=== PATIENT | male | born 1945 | race African-American/Black ===

== ENCOUNTER 2018-11-11 10:53 | Inpatient (IN) ==
[2018-11-11] MEDS ORDERED: MORPHINE 4 MG/1 ML VIAL IV STA (14:49)
[2018-11-11] MEDS ORDERED: ONDANSETRON 4 MG/2 ML VIAL IM STA (14:49)
[2018-11-11 15:23] LABS: Basophils # 0.1 10*3/uL (0.0-0.2); Basophils % 0.4 % (0.0-0.8); Eosinophils # 0.1 10*3/uL (0.0-0.87); Eosinophils % 0.8 % (0.00-10.9); Hematocrit 37.7 VOL% (42.0-52.0); Hemoglobin 12.1 GM/DL (14.0-18.0); Immature Granulocytes % 0.7 %; Immature Granulocytes Absolute 0.12 #; Lymphocytes # 1.6 10*3/uL (1.4-4.0); Lymphocytes % 9.4 % (21.2-54.2); Mean Corpuscular HGB Conc 32.1 GM/DL (32-36); Mean Corpuscular Hemoglobin 28 PG (27-34); Mean Corpuscular Volume 87.1 FL (87-102); Mean Platelet Volume 11.3 FL (9.6-12.0); Monocytes # 1.3 10*3/uL (0.11-0.8); Monocytes % 7.5 % (1.7-12.7); Neutrophils # 13.4 10*3/uL (1.4-7.4); Neutrophils % 81.2 % (38.7-73.9); Platelet Count 221 T/CUMM (130-400); Red Blood Count 4.33 MC/CUMM (3.8-5.5); Red Cell Distribution Width 13.7 % (9.3-17.3); White Blood Count 16.6 T/CUMM (4-12)
[2018-11-11 15:37] LABS: Albumin 2.9 G/DL (3.4-5.0); Bilirubin,Total 0.4 MG/DL (0.2-1.0); Calcium 9.3 MG/DL (8.5-10.1); Osmolality,Calculated 279.2 MOS/KG (273-304); Potassium 4.7 MMOL/L (3.5-5.1); Total Protein 7.8 G/DL (6.4-8.3)
[2018-11-11 15:47] LABS: PT Patient Result 10.5 SECS; Partial Thromboplastin Time 29.6 SECS (0-40)
[2018-11-11 16:15] LABS: Apearance,Urine CLEAR (Clear); Bacteria,Urine Occasional /HPF (Few); Bilirubin,Urine Negative (Negative); Blood, Urine Moderate mg/dL (Negative); Glucose,Urine (UA) Negative (Negative); Ketones,Urine Negative (Negative); Mucus,Urine Occasional /LPF (Occasional); Nitrite,Urine Negative (Negative); Protein,Urine 100 MG/DL; RBC,Urine 2 /HPF (0-4); Squamous Epithelial Cell,Urine Occasional /HPF (0-10); Urine Color Yellow (Yellow); Urine Specific Gravity 1.017 (1.001-1.035); Urine Urobilinogen < 2.0 EU/DL (0.2-1.0); WBC,Urine 3 /HPF (0-6)
[2018-11-11] MEDS ORDERED: MORPHINE 4 MG/1 ML VIAL IV PRN (17:41)
[2018-11-11] MEDS ORDERED: ONDANSETRON 4 MG/2 ML VIAL IV PRN (17:41)
[2018-11-11] MEDS ORDERED: ACETAMINOPHEN 325 MG TABLET PO PRN (17:41)
[2018-11-11] MEDS ORDERED: GLUCAGON 1 MG VIAL IM PRN (20:32)
[2018-11-11] MEDS ORDERED: DEXTROSE 50% 25 GM/50 ML SYRINGE IV PRN (20:32)
[2018-11-11] MEDS ORDERED: INSULIN LISPRO PROTAMINE/LISPRO 75/25 100 UNIT/ML SUBCUT SCH (21:00)
[2018-11-11] MEDS: LACTATED RINGERS 1,000 ML IV SCH (21:34)
[2018-11-11] MEDS: ROSUVASTATIN 20 MG TABLET PO SCH (22:01)
[2018-11-11] MEDS: cefTRIAXone 1,000 MG in SYRINGE 1 EACH IV SCH (22:01)
[2018-11-11] MEDS: INSULIN GLARGINE 100 UNIT/ML SUBCUT SCH (22:03)
[2018-11-11] MEDS: HEPARIN DRIP 25,000 UNITS/500 ML PREMIX IV SCH (22:04)
[2018-11-12] MEDS: INSULIN LISPRO 100 UNIT/ML SUBCUT SCH ×5 (00:39→23:11)
[2018-11-12 05:53] LABS: Basophils # 0.1 10*3/uL (0.0-0.2); Basophils % 0.3 % (0.0-0.8); Eosinophils # 0.3 10*3/uL (0.0-0.87); Eosinophils % 1.6 % (0.00-10.9); Hematocrit 36.8 VOL% (42.0-52.0); Hemoglobin 11.5 GM/DL (14.0-18.0); Immature Granulocytes % 0.9 %; Immature Granulocytes Absolute 0.16 #; Lymphocytes # 2.2 10*3/uL (1.4-4.0); Lymphocytes % 12.8 % (21.2-54.2); Mean Corpuscular HGB Conc 31.3 GM/DL (32-36); Mean Corpuscular Hemoglobin 27 PG (27-34); Mean Corpuscular Volume 87.6 FL (87-102); Mean Platelet Volume 10.8 FL (9.6-12.0); Monocytes # 1.5 10*3/uL (0.11-0.8); Monocytes % 8.4 % (1.7-12.7); Neutrophils # 13.2 10*3/uL (1.4-7.4); Platelet Count 200 T/CUMM (130-400); Red Cell Distribution Width 13.8 % (9.3-17.3); White Blood Count 17.3 T/CUMM (4-12)
[2018-11-12] MEDS: ASPIRIN EC 81 MG TABLET PO SCH (08:50)
[2018-11-12] MEDS: LOSARTAN 50 MG TABLET PO SCH (08:50)
[2018-11-12] MEDS: PANTOPRAZOLE 40 MG TABLET PO SCH (08:51)
[2018-11-12] MEDS: FERROUS SULFATE 325 MG TABLET PO SCH (08:51)
[2018-11-12] MEDS: CHOLECALCIFEROL 1,000 UNIT TABLET PO SCH (08:51)
[2018-11-12] MEDS: INSULIN LISPRO PROTAMINE/LISPRO 75/25 100 UNIT/ML SUBCUT SCH ×2 (08:58→18:02)
[2018-11-12] MEDS: LACTATED RINGERS 1,000 ML IV SCH ×2 (11:41→21:33)
[2018-11-12] MEDS: HEPARIN DRIP 25,000 UNITS/500 ML PREMIX IV SCH ×2 (16:37→17:42)
[2018-11-12] MEDS: POLYETHYLENE GLYCOL POWDER 17 GM PACK PO SCH (18:15)
[2018-11-12] MEDS: cefTRIAXone 1,000 MG in SYRINGE 1 EACH IV SCH (21:33)
[2018-11-12] MEDS: INSULIN GLARGINE 100 UNIT/ML SUBCUT SCH (21:33)
[2018-11-12] MEDS: ROSUVASTATIN 20 MG TABLET PO SCH (21:34)
[2018-11-13] MEDS: LACTATED RINGERS 1,000 ML IV SCH ×2 (00:43→14:49)
[2018-11-13 05:22] LABS: Basophils % 0.2 % (0.0-0.8); Eosinophils # 0.4 10*3/uL (0.0-0.87); Eosinophils % 1.9 % (0.00-10.9); Hematocrit 35.9 VOL% (42.0-52.0); Hemoglobin 11.4 GM/DL (14.0-18.0); Immature Granulocytes % 1.7 %; Immature Granulocytes Absolute 0.32 #; Lymphocytes # 2.3 10*3/uL (1.4-4.0); Lymphocytes % 12.3 % (21.2-54.2); Mean Corpuscular HGB Conc 31.8 GM/DL (32-36); Mean Corpuscular Hemoglobin 28 PG (27-34); Mean Corpuscular Volume 87.1 FL (87-102); Mean Platelet Volume 11.1 FL (9.6-12.0); Monocytes # 1.4 10*3/uL (0.11-0.8); Monocytes % 7.7 % (1.7-12.7); Neutrophils # 14.1 10*3/uL (1.4-7.4); Neutrophils % 76.2 % (38.7-73.9); Platelet Count 223 T/CUMM (130-400); Red Blood Count 4.12 MC/CUMM (3.8-5.5); Red Cell Distribution Width 13.7 % (9.3-17.3); White Blood Count 18.4 T/CUMM (4-12)
[2018-11-13 05:37] LABS: Osmolality,Calculated 267.9 MOS/KG (273-304); Potassium 4.5 MMOL/L (3.5-5.1)
[2018-11-13] MEDS: INSULIN LISPRO 100 UNIT/ML SUBCUT SCH ×3 (06:24→17:31)
[2018-11-13] MEDS: HEPARIN DRIP 25,000 UNITS/500 ML PREMIX IV SCH (07:56)
[2018-11-13] MEDS: ASPIRIN EC 81 MG TABLET PO SCH (08:53)
[2018-11-13] MEDS: PANTOPRAZOLE 40 MG TABLET PO SCH (08:53)
[2018-11-13] MEDS: FERROUS SULFATE 325 MG TABLET PO SCH (08:53)
[2018-11-13] MEDS: CHOLECALCIFEROL 1,000 UNIT TABLET PO SCH (08:53)
[2018-11-13] MEDS: LOSARTAN 50 MG TABLET PO SCH (08:53)
[2018-11-13] MEDS: POLYETHYLENE GLYCOL POWDER 17 GM PACK PO SCH (08:53)
[2018-11-13] MEDS ORDERED: POLYETHYLENE GLYCOL POWDER 17 GM PACK PO SCH (09:00)
[2018-11-13] MEDS ORDERED: INDOMETHACIN 50 MG CAPSULE PO SCH (09:00)
[2018-11-13] MEDS: INSULIN LISPRO PROTAMINE/LISPRO 75/25 100 UNIT/ML SUBCUT SCH ×2 (09:43→19:10)
[2018-11-13] MEDS: INDOMETHACIN 25 MG CAPSULE PO SCH ×3 (09:50→22:01)
[2018-11-13] MEDS: COLCHICINE 0.6 MG CAPSULE PO SCH ×2 (09:50→21:59)
[2018-11-13] MEDS: cefTRIAXone 1,000 MG in SYRINGE 1 EACH IV SCH (21:59)
[2018-11-13] MEDS: ROSUVASTATIN 20 MG TABLET PO SCH (21:59)
[2018-11-13] MEDS: INSULIN GLARGINE 100 UNIT/ML SUBCUT SCH (22:00)
[2018-11-14] MEDS: INSULIN LISPRO 100 UNIT/ML SUBCUT SCH ×3 (00:08→12:35)
[2018-11-14] MEDS: LACTATED RINGERS 1,000 ML IV SCH ×2 (03:36→05:15)
[2018-11-14 05:39] LABS: Basophils % 0.2 % (0.0-0.8); Eosinophils # 0.3 10*3/uL (0.0-0.87); Eosinophils % 1.8 % (0.00-10.9); Hemoglobin 11.4 GM/DL (14.0-18.0); Immature Granulocytes % 2.2 %; Lymphocytes # 1.5 10*3/uL (1.4-4.0); Lymphocytes % 8.1 % (21.2-54.2); Mean Corpuscular HGB Conc 31.7 GM/DL (32-36); Mean Corpuscular Hemoglobin 28 PG (27-34); Mean Corpuscular Volume 87.4 FL (87-102); Mean Platelet Volume 11.1 FL (9.6-12.0); Monocytes # 1.5 10*3/uL (0.11-0.8); Monocytes % 8.1 % (1.7-12.7); Neutrophils # 14.4 10*3/uL (1.4-7.4); Neutrophils % 79.6 % (38.7-73.9); Platelet Count 221 T/CUMM (130-400); Red Blood Count 4.12 MC/CUMM (3.8-5.5); Red Cell Distribution Width 13.5 % (9.3-17.3); White Blood Count 18.2 T/CUMM (4-12)
[2018-11-14 06:02] LABS: Osmolality,Calculated 275.4 MOS/KG (273-304); Potassium 4.7 MMOL/L (3.5-5.1)
[2018-11-14] MEDS: PANTOPRAZOLE 40 MG TABLET PO SCH (09:55)
[2018-11-14] MEDS: LOSARTAN 50 MG TABLET PO SCH (09:55)
[2018-11-14] MEDS: ASPIRIN EC 81 MG TABLET PO SCH (09:55)
[2018-11-14] MEDS: FERROUS SULFATE 325 MG TABLET PO SCH (09:55)
[2018-11-14] MEDS: COLCHICINE 0.6 MG CAPSULE PO SCH (09:55)
[2018-11-14] MEDS: CHOLECALCIFEROL 1,000 UNIT TABLET PO SCH (09:55)
[2018-11-14] MEDS: POLYETHYLENE GLYCOL POWDER 17 GM PACK PO SCH (09:56)
[2018-11-14] MEDS: INSULIN LISPRO PROTAMINE/LISPRO 75/25 100 UNIT/ML SUBCUT SCH (09:56)
[2018-11-14 18:10] VITALS: BP 141/88
[2018-11-15] MEDS ORDERED: ALLOPURINOL 100 MG TABLET PO SCH (09:00)
== END 2018-11-14 17:15 | disposition home or self-care (01) | DRG 554 ==
LOC: N.ED 10:53 → N.EDINP 17:39 → N.3E 19:38
PROVIDERS: ADMIT Surgery; ATTEND Surgery

== ENCOUNTER 2018-11-23 21:45 | Inpatient (IN) ==
[2018-11-24 00:13] LABS: Basophils # 0.1 10*3/uL (0.0-0.2); Basophils % 0.2 % (0.0-0.8); Eosinophils # 0.2 10*3/uL (0.0-0.87); Eosinophils % 0.7 % (0.00-10.9); Hematocrit 37.3 VOL% (42.0-52.0); Hemoglobin 11.6 GM/DL (14.0-18.0); Immature Granulocytes % 1.1 %; Immature Granulocytes Absolute 0.24 #; Lymphocytes # 1.9 10*3/uL (1.4-4.0); Lymphocytes % 8.4 % (21.2-54.2); Mean Corpuscular HGB Conc 31.1 GM/DL (32-36); Mean Corpuscular Hemoglobin 27 PG (27-34); Mean Platelet Volume 10.4 FL (9.6-12.0); Monocytes % 4.4 % (1.7-12.7); Neutrophils # 19.2 10*3/uL (1.4-7.4); Neutrophils % 85.2 % (38.7-73.9); Platelet Count 434 T/CUMM (130-400); Red Blood Count 4.24 MC/CUMM (3.8-5.5); White Blood Count 22.5 T/CUMM (4-12)
[2018-11-24 00:39] LABS: Alanine Aminotransferase 119 U/L (16-61); Alkaline Phosphatase 208 U/L (45-117); Aspartate Amino Transferase 92 U/L (0-37); Bilirubin,Total < 0.39 MG/DL (0.2-1.0); Blood Urea Nitrogen 53 MG/DL (7-18); Calcium 9.4 MG/DL (8.5-10.1); Glucose 110 MG/DL (74-106); Potassium 3.8 MMOL/L (3.5-5.1); Sodium 136 MMOL/L (136-145); Total Protein 9.2 G/DL (6.4-8.3)
[2018-11-24 00:46] LABS: Albumin 2.2 G/DL (3.4-5.0)
[2018-11-24 04:48] LABS: Lymphocytes 6 % (20-55); Segmented Neutrophils 93 % (50-85); Total Cells Counted 100
[2018-11-24 04:49] LABS: Platelet Estimate Normal; Polychromasia Few
[2018-11-24] MEDS: SODIUM CHLORIDE 0.45% 1,000 ML IV SCH ×3 (05:08→18:56)
[2018-11-24] MEDS: MORPHINE 4 MG/1 ML VIAL IV PRN ×3 (06:34→21:27)
[2018-11-24] MEDS: ONDANSETRON 4 MG/2 ML VIAL IV PRN (06:35)
[2018-11-24] MEDS ORDERED: ceFAZolin 1,000 MG in SYRINGE 1 EACH IV ONE (08:27)
[2018-11-24] MEDS: PANTOPRAZOLE 40 MG VIAL IV SCH (08:28)
[2018-11-24] MEDS ORDERED: FAMOTIDINE 20 MG TABLET PO STA (09:56)
[2018-11-24] MEDS ORDERED: LIDOCAINE 2% TOP JELLY 20 ML VIAL INTRAURETH ONE (11:20)
[2018-11-24] MEDS ORDERED: LIDOCAINE 1% 20 ML VIAL ONE (11:20)
[2018-11-24] MEDS ORDERED: VANCOMYCIN 500 MG VIAL ONE (11:20)
[2018-11-24] MEDS ORDERED: THROMBIN TOPICAL (RECOMBINANT) 5,000 UNIT VIAL TOP ONE (11:20)
[2018-11-24] MEDS ORDERED: HEPARIN 5,000 UNIT/1 ML VIAL ONE (11:20)
[2018-11-24] MEDS ORDERED: TISSUE ADHESIVE 1 EACH APPLICATOR TOP ONE (11:20)
[2018-11-24] MEDS ORDERED: fentaNYL 100 MCG/2 ML VIAL ONE (14:15)
[2018-11-24] MEDS ORDERED: MIDAZOLAM 2 MG/2 ML VIAL ONE (14:15)
[2018-11-24] MEDS ORDERED: PHENYLEPHRINE 10 MG/1 ML VIAL IV ONE (14:15)
[2018-11-24] MEDS ORDERED: ROCURONIUM 100 MG/10 ML VIAL IV ONE (14:15)
[2018-11-24] MEDS ORDERED: PROPOFOL 200 MG/20 ML VIAL IV ONE (14:15)
[2018-11-24] MEDS ORDERED: HEPARIN 10,000 UNIT/10 ML VIAL ONE (14:15)
[2018-11-24] MEDS ORDERED: HEPARIN/NACL 0.9% 2 UNITS/ML 500 ML IV ONE (14:15)
[2018-11-24] MEDS ORDERED: SEVOFLURANE 1 UNIT/15 MINUTE INH ONE (14:16)
[2018-11-24 14:52] LABS: Hematocrit 35.3 VOL% (42.0-52.0); Hemoglobin 10.7 GM/DL (14.0-18.0)
[2018-11-24] MEDS: LACTATED RINGERS 1,000 ML IV SCH (16:56)
[2018-11-24] MEDS: INSULIN LISPRO PROTAMINE/LISPRO 75/25 100 UNIT/ML SUBCUT SCH (17:09)
[2018-11-24] MEDS: HYDROmorphone 2 MG/1 ML VIAL IV PRN (17:53)
[2018-11-24] MEDS: COLCHICINE 0.6 MG CAPSULE PO SCH (20:47)
[2018-11-24] MEDS: ROSUVASTATIN 20 MG TABLET PO SCH (20:47)
[2018-11-24] MEDS: INSULIN GLARGINE 100 UNIT/ML SUBCUT SCH (20:47)
[2018-11-24] MEDS: ceFAZolin 1,000 MG in SYRINGE 1 EACH IV SCH (22:26)
[2018-11-25] MEDS: HYDROmorphone 2 MG/1 ML VIAL IV PRN ×3 (01:14→20:29)
[2018-11-25 04:59] LABS: Basophils % 0.2 % (0.0-0.8); Eosinophils # 0.1 10*3/uL (0.0-0.87); Eosinophils % 0.2 % (0.00-10.9); Hematocrit 34.5 VOL% (42.0-52.0); Hemoglobin 10.3 GM/DL (14.0-18.0); Immature Granulocytes % 0.8 %; Immature Granulocytes Absolute 0.18 #; Lymphocytes # 1.7 10*3/uL (1.4-4.0); Lymphocytes % 7.8 % (21.2-54.2); Mean Corpuscular HGB Conc 29.9 GM/DL (32-36); Mean Corpuscular Hemoglobin 27 PG (27-34); Mean Corpuscular Volume 90.1 FL (87-102); Mean Platelet Volume 10.5 FL (9.6-12.0); Monocytes # 1.1 10*3/uL (0.11-0.8); Monocytes % 5.1 % (1.7-12.7); Neutrophils # 18.5 10*3/uL (1.4-7.4); Neutrophils % 85.9 % (38.7-73.9); Platelet Count 419 T/CUMM (130-400); Red Blood Count 3.83 MC/CUMM (3.8-5.5); Red Cell Distribution Width 13.9 % (9.3-17.3); White Blood Count 21.5 T/CUMM (4-12)
[2018-11-25 05:18] LABS: Calcium 9.1 MG/DL (8.5-10.1); Potassium 4.5 MMOL/L (3.5-5.1)
[2018-11-25 05:22] LABS: Hypochromasia 1+; Platelet Estimate Adequate
[2018-11-25] MEDS: INSULIN LISPRO PROTAMINE/LISPRO 75/25 100 UNIT/ML SUBCUT SCH ×2 (07:01→17:08)
[2018-11-25] MEDS: SODIUM CHLORIDE 0.45% 1,000 ML IV SCH ×3 (07:42→18:14)
[2018-11-25] MEDS: LACTATED RINGERS 1,000 ML IV SCH (07:42)
[2018-11-25] MEDS: ceFAZolin 1,000 MG in SYRINGE 1 EACH IV SCH ×3 (07:43→19:28)
[2018-11-25] MEDS ORDERED: NON-FORMULARY MEDICATION (Liraglutide [Victoza 3-Pak] 1.8 MG) SUBCUT SCH (09:00)
[2018-11-25] MEDS ORDERED: ASPIRIN CHEW 81 MG TABLET PO SCH (09:00)
[2018-11-25] MEDS ORDERED: INSULIN LISPRO PROTAMINE/LISPRO 75/25 100 UNIT/ML SUBCUT SCH (09:00)
[2018-11-25] MEDS: ENOXAPARIN 40 MG/0.4 ML SYRINGE SUBCUT SCH (09:18)
[2018-11-25] MEDS: PANTOPRAZOLE 40 MG VIAL IV SCH (09:18)
[2018-11-25] MEDS: ALLOPURINOL 100 MG TABLET PO SCH (09:19)
[2018-11-25] MEDS: OMEGA 3 ACID ETHYL ESTERS 1 GM CAPSULE PO SCH (09:19)
[2018-11-25] MEDS: ASPIRIN EC 81 MG TABLET PO SCH (09:19)
[2018-11-25] MEDS: CHOLECALCIFEROL 1,000 UNIT TABLET PO SCH (09:19)
[2018-11-25] MEDS: CLOPIDOGREL 75 MG TABLET PO SCH (09:19)
[2018-11-25] MEDS: COLCHICINE 0.6 MG CAPSULE PO SCH ×2 (09:19→20:27)
[2018-11-25] MEDS: CHLORTHALIDONE 25 MG TABLET PO SCH (09:19)
[2018-11-25] MEDS: LOSARTAN 50 MG TABLET PO SCH (09:19)
[2018-11-25] MEDS: FERROUS SULFATE ER 140 MG TABLET PO SCH (10:48)
[2018-11-25] MEDS: MORPHINE 4 MG/1 ML VIAL IV PRN (18:25)
[2018-11-25] MEDS: ROSUVASTATIN 20 MG TABLET PO SCH (20:28)
[2018-11-25] MEDS: INSULIN GLARGINE 100 UNIT/ML SUBCUT SCH (21:24)
[2018-11-26] MEDS: SODIUM CHLORIDE 0.45% 1,000 ML IV SCH ×3 (03:44→18:03)
[2018-11-26] MEDS: ceFAZolin 1,000 MG in SYRINGE 1 EACH IV SCH ×3 (04:00→22:01)
[2018-11-26] MEDS ORDERED: DEXTROSE 50% 25 GM/50 ML SYRINGE IV PRN (07:24)
[2018-11-26] MEDS ORDERED: DEXTROSE 50% 25 GM/50 ML SYRINGE IV ONE (07:25)
[2018-11-26] MEDS: ENOXAPARIN 40 MG/0.4 ML SYRINGE SUBCUT SCH (09:57)
[2018-11-26] MEDS: CHLORTHALIDONE 25 MG TABLET PO SCH (09:57)
[2018-11-26] MEDS: PANTOPRAZOLE 40 MG VIAL IV SCH (09:57)
[2018-11-26] MEDS: INSULIN LISPRO PROTAMINE/LISPRO 75/25 100 UNIT/ML SUBCUT SCH ×2 (09:57→16:15)
[2018-11-26] MEDS: OMEGA 3 ACID ETHYL ESTERS 1 GM CAPSULE PO SCH (09:57)
[2018-11-26] MEDS: CHOLECALCIFEROL 1,000 UNIT TABLET PO SCH (09:57)
[2018-11-26] MEDS: LOSARTAN 50 MG TABLET PO SCH (09:58)
[2018-11-26] MEDS: CLOPIDOGREL 75 MG TABLET PO SCH (09:58)
[2018-11-26] MEDS: FERROUS SULFATE ER 140 MG TABLET PO SCH (09:58)
[2018-11-26] MEDS: COLCHICINE 0.6 MG CAPSULE PO SCH ×2 (09:58→22:00)
[2018-11-26] MEDS: ASPIRIN EC 81 MG TABLET PO SCH (09:58)
[2018-11-26] MEDS: ALLOPURINOL 100 MG TABLET PO SCH (09:58)
[2018-11-26] MEDS: MORPHINE 4 MG/1 ML VIAL IV PRN ×3 (12:09→21:57)
[2018-11-26] MEDS: INSULIN GLARGINE 100 UNIT/ML SUBCUT SCH (20:53)
[2018-11-26] MEDS: ROSUVASTATIN 20 MG TABLET PO SCH (21:59)
[2018-11-27] MEDS: SODIUM CHLORIDE 0.45% 1,000 ML IV SCH ×2 (04:36→11:10)
[2018-11-27] MEDS: ceFAZolin 1,000 MG in SYRINGE 1 EACH IV SCH ×3 (05:53→19:08)
[2018-11-27] MEDS: CHLORTHALIDONE 25 MG TABLET PO SCH (09:53)
[2018-11-27] MEDS: COLCHICINE 0.6 MG CAPSULE PO SCH ×2 (09:53→20:18)
[2018-11-27] MEDS: ASPIRIN EC 81 MG TABLET PO SCH (09:53)
[2018-11-27] MEDS: LOSARTAN 50 MG TABLET PO SCH (09:53)
[2018-11-27] MEDS: CHOLECALCIFEROL 1,000 UNIT TABLET PO SCH (09:53)
[2018-11-27] MEDS: CLOPIDOGREL 75 MG TABLET PO SCH (09:54)
[2018-11-27] MEDS: ENOXAPARIN 40 MG/0.4 ML SYRINGE SUBCUT SCH (09:54)
[2018-11-27] MEDS: OMEGA 3 ACID ETHYL ESTERS 1 GM CAPSULE PO SCH (09:54)
[2018-11-27] MEDS: ALLOPURINOL 100 MG TABLET PO SCH (09:54)
[2018-11-27] MEDS: FERROUS SULFATE ER 140 MG TABLET PO SCH (09:54)
[2018-11-27] MEDS: PANTOPRAZOLE 40 MG VIAL IV SCH ×2 (09:54→11:11)
[2018-11-27] MEDS: INSULIN LISPRO PROTAMINE/LISPRO 75/25 100 UNIT/ML SUBCUT SCH ×2 (10:03→17:41)
[2018-11-27] MEDS: SILVER SULFADIAZINE 1% CREAM 25 GM TUBE TOP SCH (13:30)
[2018-11-27] MEDS: ROSUVASTATIN 20 MG TABLET PO SCH (20:17)
[2018-11-27] MEDS: INSULIN GLARGINE 100 UNIT/ML SUBCUT SCH (20:29)
[2018-11-28] MEDS: ceFAZolin 1,000 MG in SYRINGE 1 EACH IV SCH ×3 (03:20→22:30)
[2018-11-28] MEDS: MORPHINE 4 MG/1 ML VIAL IV PRN (03:31)
[2018-11-28 04:47] LABS: Basophils % 0.2 % (0.0-0.8); Eosinophils # 0.3 10*3/uL (0.0-0.87); Eosinophils % 1.4 % (0.00-10.9); Hematocrit 31.3 VOL% (42.0-52.0); Hemoglobin 9.7 GM/DL (14.0-18.0); Immature Granulocytes % 0.6 %; Immature Granulocytes Absolute 0.11 #; Lymphocytes % 10.6 % (21.2-54.2); Mean Corpuscular Hemoglobin 28 PG (27-34); Mean Corpuscular Volume 88.7 FL (87-102); Mean Platelet Volume 10.6 FL (9.6-12.0); Monocytes % 5.7 % (1.7-12.7); Neutrophils % 81.5 % (38.7-73.9); Platelet Count 350 T/CUMM (130-400); Red Blood Count 3.53 MC/CUMM (3.8-5.5); White Blood Count 18.4 T/CUMM (4-12)
[2018-11-28 05:14] LABS: Calcium 8.9 MG/DL (8.5-10.1); Osmolality,Calculated 276.1 MOS/KG (273-304); Potassium 4.1 MMOL/L (3.5-5.1)
[2018-11-28] MEDS: PANTOPRAZOLE 40 MG VIAL IV SCH (09:23)
[2018-11-28] MEDS: CHOLECALCIFEROL 1,000 UNIT TABLET PO SCH (09:24)
[2018-11-28] MEDS: ENOXAPARIN 40 MG/0.4 ML SYRINGE SUBCUT SCH (09:24)
[2018-11-28] MEDS: INSULIN LISPRO PROTAMINE/LISPRO 75/25 100 UNIT/ML SUBCUT SCH ×2 (09:24→17:52)
[2018-11-28] MEDS: CLOPIDOGREL 75 MG TABLET PO SCH (09:25)
[2018-11-28] MEDS: LOSARTAN 50 MG TABLET PO SCH (09:25)
[2018-11-28] MEDS: COLCHICINE 0.6 MG CAPSULE PO SCH ×2 (09:25→22:30)
[2018-11-28] MEDS: ASPIRIN EC 81 MG TABLET PO SCH (09:25)
[2018-11-28] MEDS: FERROUS SULFATE ER 140 MG TABLET PO SCH (09:27)
[2018-11-28] MEDS: SILVER SULFADIAZINE 1% CREAM 25 GM TUBE TOP SCH (09:27)
[2018-11-28] MEDS: ALLOPURINOL 100 MG TABLET PO SCH (09:27)
[2018-11-28] MEDS: OMEGA 3 ACID ETHYL ESTERS 1 GM CAPSULE PO SCH (09:27)
[2018-11-28] MEDS: CHLORTHALIDONE 25 MG TABLET PO SCH (09:27)
[2018-11-28] MEDS: HYDROmorphone 2 MG/1 ML VIAL IV PRN (17:53)
[2018-11-28] MEDS: ROSUVASTATIN 20 MG TABLET PO SCH (22:30)
[2018-11-28] MEDS: INSULIN GLARGINE 100 UNIT/ML SUBCUT SCH (22:30)
[2018-11-29] MEDS: ceFAZolin 1,000 MG in SYRINGE 1 EACH IV SCH ×3 (04:28→20:13)
[2018-11-29] MEDS: CHLORTHALIDONE 25 MG TABLET PO SCH (09:54)
[2018-11-29] MEDS: FERROUS SULFATE ER 140 MG TABLET PO SCH (09:54)
[2018-11-29] MEDS: ASPIRIN EC 81 MG TABLET PO SCH (09:54)
[2018-11-29] MEDS: LOSARTAN 50 MG TABLET PO SCH (09:54)
[2018-11-29] MEDS: CHOLECALCIFEROL 1,000 UNIT TABLET PO SCH (09:54)
[2018-11-29] MEDS: ALLOPURINOL 100 MG TABLET PO SCH (09:54)
[2018-11-29] MEDS: ENOXAPARIN 40 MG/0.4 ML SYRINGE SUBCUT SCH (09:55)
[2018-11-29] MEDS: CLOPIDOGREL 75 MG TABLET PO SCH (09:55)
[2018-11-29] MEDS ORDERED: LOPERAMIDE 2 MG CAPSULE PO PRN (09:56)
[2018-11-29] MEDS: INSULIN LISPRO PROTAMINE/LISPRO 75/25 100 UNIT/ML SUBCUT SCH ×2 (09:56→17:18)
[2018-11-29] MEDS ORDERED: LOPERAMIDE 2 MG CAPSULE PO ONE (09:56)
[2018-11-29] MEDS: COLCHICINE 0.6 MG CAPSULE PO SCH ×2 (09:56→20:11)
[2018-11-29] MEDS: PANTOPRAZOLE 40 MG VIAL IV SCH (09:56)
[2018-11-29] MEDS: OMEGA 3 ACID ETHYL ESTERS 1 GM CAPSULE PO SCH (09:56)
[2018-11-29] MEDS: SILVER SULFADIAZINE 1% CREAM 25 GM TUBE TOP SCH (09:57)
[2018-11-29] MEDS: LACTOBACILLUS ACIDOPHILUS/BULGARICUS CHEW TABLET PO SCH ×2 (14:24→20:11)
[2018-11-29] MEDS: metroNIDAZOLE 250 MG TABLET PO SCH ×2 (17:36→23:56)
[2018-11-29] MEDS: ROSUVASTATIN 20 MG TABLET PO SCH (20:11)
[2018-11-29] MEDS: INSULIN GLARGINE 100 UNIT/ML SUBCUT SCH (20:19)
[2018-11-29] MEDS: VANCOMYCIN 50 MG/ML 60 ML/BOTTLE PO SCH (22:21)
[2018-11-30] MEDS: ceFAZolin 1,000 MG in SYRINGE 1 EACH IV SCH (04:03)
[2018-11-30] MEDS: metroNIDAZOLE 250 MG TABLET PO SCH ×4 (05:39→23:00)
[2018-11-30] MEDS: VANCOMYCIN 50 MG/ML 60 ML/BOTTLE PO SCH ×3 (05:39→22:57)
[2018-11-30] MEDS ORDERED: VANCOMYCIN INJ 1,000 MG in SODIUM CHLORIDE 0.9% 250 ML IV ONE (08:45)
[2018-11-30] MEDS ORDERED: VANCOMYCIN 1,000 MG VIAL ONE (08:47)
[2018-11-30] MEDS: INSULIN LISPRO PROTAMINE/LISPRO 75/25 100 UNIT/ML SUBCUT SCH ×2 (09:57→18:04)
[2018-11-30] MEDS: ENOXAPARIN 40 MG/0.4 ML SYRINGE SUBCUT SCH (09:57)
[2018-11-30] MEDS: ASPIRIN EC 81 MG TABLET PO SCH (09:59)
[2018-11-30] MEDS: COLCHICINE 0.6 MG CAPSULE PO SCH ×2 (10:04→21:05)
[2018-11-30] MEDS: CLOPIDOGREL 75 MG TABLET PO SCH (10:05)
[2018-11-30] MEDS: CHLORTHALIDONE 25 MG TABLET PO SCH (10:05)
[2018-11-30] MEDS: LOSARTAN 50 MG TABLET PO SCH (10:05)
[2018-11-30] MEDS: PANTOPRAZOLE 40 MG VIAL IV SCH (10:05)
[2018-11-30] MEDS: OMEGA 3 ACID ETHYL ESTERS 1 GM CAPSULE PO SCH (10:05)
[2018-11-30] MEDS: LACTOBACILLUS ACIDOPHILUS/BULGARICUS CHEW TABLET PO SCH ×3 (10:05→21:05)
[2018-11-30] MEDS: SILVER SULFADIAZINE 1% CREAM 25 GM TUBE TOP SCH (10:06)
[2018-11-30] MEDS: FERROUS SULFATE ER 140 MG TABLET PO SCH (10:07)
[2018-11-30] MEDS: CHOLECALCIFEROL 1,000 UNIT TABLET PO SCH (10:08)
[2018-11-30] MEDS: ALLOPURINOL 100 MG TABLET PO SCH (10:08)
[2018-11-30] MEDS ORDERED: PROPOFOL 200 MG/20 ML VIAL IV ONE (10:37)
[2018-11-30] MEDS ORDERED: MIDAZOLAM 2 MG/2 ML VIAL ONE (10:38)
[2018-11-30] MEDS ORDERED: SEVOFLURANE 1 UNIT/15 MINUTE INH ONE (10:38)
[2018-11-30] MEDS ORDERED: ONDANSETRON 4 MG/2 ML VIAL ONE (10:38)
[2018-11-30] MEDS ORDERED: fentaNYL 100 MCG/2 ML VIAL ONE (10:38)
[2018-11-30] MEDS ORDERED: PHENYLEPHRINE DRIP 20 MG/250 ML PREMIX IV ONE (10:38)
[2018-11-30] MEDS ORDERED: KETOROLAC 30 MG/1 ML VIAL ONE (10:39)
[2018-11-30] MEDS ORDERED: NEOSTIGMINE 10 MG/10 ML VIAL ONE (10:39)
[2018-11-30] MEDS ORDERED: GLYCOPYRROLATE 0.4 MG/2 ML VIAL ONE (10:39)
[2018-11-30] MEDS ORDERED: ROCURONIUM 100 MG/10 ML VIAL IV ONE (10:39)
[2018-11-30] MEDS ORDERED: ONDANSETRON 4 MG/2 ML VIAL IV PRN (10:48)
[2018-11-30] MEDS: HYDROmorphone 2 MG/1 ML VIAL IV PRN ×5 (10:53→19:06)
[2018-11-30] MEDS: KETOROLAC 10 MG TABLET PO SCH ×3 (11:56→23:00)
[2018-11-30] MEDS: MORPHINE 4 MG/1 ML VIAL IV PRN (14:28)
[2018-11-30] MEDS: ROSUVASTATIN 20 MG TABLET PO SCH (21:05)
[2018-11-30] MEDS: INSULIN GLARGINE 100 UNIT/ML SUBCUT SCH (21:35)
[2018-12-01] MEDS: MORPHINE 4 MG/1 ML VIAL IV PRN (01:44)
[2018-12-01 05:11] LABS: Basophils % 0.2 % (0.0-0.8); Eosinophils # 0.2 10*3/uL (0.0-0.87); Eosinophils % 1.3 % (0.00-10.9); Hematocrit 23.9 VOL% (42.0-52.0); Immature Granulocytes % 0.9 %; Immature Granulocytes Absolute 0.11 #; Lymphocytes # 1.3 10*3/uL (1.4-4.0); Lymphocytes % 10.1 % (21.2-54.2); Mean Corpuscular HGB Conc 30.5 GM/DL (32-36); Mean Corpuscular Hemoglobin 27 PG (27-34); Mean Corpuscular Volume 89.5 FL (87-102); Mean Platelet Volume 10.4 FL (9.6-12.0); Monocytes # 0.9 10*3/uL (0.11-0.8); Monocytes % 7.1 % (1.7-12.7); Neutrophils % 80.4 % (38.7-73.9); Red Cell Distribution Width 13.9 % (9.3-17.3)
[2018-12-01 05:26] LABS: Calcium 8.2 MG/DL (8.5-10.1); Potassium 4.1 MMOL/L (3.5-5.1)
[2018-12-01] MEDS: KETOROLAC 10 MG TABLET PO SCH ×3 (05:34→17:48)
[2018-12-01] MEDS: VANCOMYCIN 50 MG/ML 60 ML/BOTTLE PO SCH ×3 (05:34→22:42)
[2018-12-01] MEDS: metroNIDAZOLE 250 MG TABLET PO SCH ×3 (05:35→17:48)
[2018-12-01 05:45] LABS: Hemoglobin 7.3 GM/DL (14.0-18.0); Platelet Count 274 T/CUMM (130-400); Red Blood Count 2.67 MC/CUMM (3.8-5.5); White Blood Count 12.4 T/CUMM (4-12)
[2018-12-01] MEDS: CHOLECALCIFEROL 1,000 UNIT TABLET PO SCH (09:30)
[2018-12-01] MEDS: COLCHICINE 0.6 MG CAPSULE PO SCH (09:30)
[2018-12-01] MEDS: PANTOPRAZOLE 40 MG VIAL IV SCH (09:31)
[2018-12-01] MEDS: OMEGA 3 ACID ETHYL ESTERS 1 GM CAPSULE PO SCH (09:32)
[2018-12-01] MEDS: LOSARTAN 50 MG TABLET PO SCH (09:32)
[2018-12-01] MEDS: CHLORTHALIDONE 25 MG TABLET PO SCH (09:32)
[2018-12-01] MEDS: INSULIN LISPRO PROTAMINE/LISPRO 75/25 100 UNIT/ML SUBCUT SCH ×2 (09:32→17:48)
[2018-12-01] MEDS: FERROUS SULFATE ER 140 MG TABLET PO SCH (10:03)
[2018-12-01] MEDS: CLOPIDOGREL 75 MG TABLET PO SCH (10:03)
[2018-12-01] MEDS: SILVER SULFADIAZINE 1% CREAM 25 GM TUBE TOP SCH (10:03)
[2018-12-01] MEDS: ASPIRIN EC 81 MG TABLET PO SCH (11:04)
[2018-12-01] MEDS: LACTOBACILLUS ACIDOPHILUS/BULGARICUS CHEW TABLET PO SCH ×3 (11:04→22:42)
[2018-12-01] MEDS: ALLOPURINOL 100 MG TABLET PO SCH (11:04)
[2018-12-01] MEDS: ENOXAPARIN 40 MG/0.4 ML SYRINGE SUBCUT SCH (11:04)
[2018-12-01] MEDS: INSULIN GLARGINE 100 UNIT/ML SUBCUT SCH (21:27)
[2018-12-01] MEDS: ROSUVASTATIN 20 MG TABLET PO SCH (21:27)
[2018-12-01] MEDS: MULTIVITAMIN (INTRINSIC) CAPSULE PO SCH (21:27)
[2018-12-02] MEDS: KETOROLAC 10 MG TABLET PO SCH ×5 (00:35→23:23)
[2018-12-02] MEDS: metroNIDAZOLE 250 MG TABLET PO SCH ×5 (00:35→23:23)
[2018-12-02 05:19] LABS: Basophils % 0.2 % (0.0-0.8); Eosinophils # 0.2 10*3/uL (0.0-0.87); Eosinophils % 1.9 % (0.00-10.9); Hematocrit 24.6 VOL% (42.0-52.0); Hemoglobin 7.5 GM/DL (14.0-18.0); Immature Granulocytes Absolute 0.12 #; Lymphocytes # 1.4 10*3/uL (1.4-4.0); Lymphocytes % 11.5 % (21.2-54.2); Mean Corpuscular HGB Conc 30.5 GM/DL (32-36); Mean Corpuscular Hemoglobin 28 PG (27-34); Mean Corpuscular Volume 90.1 FL (87-102); Mean Platelet Volume 10.1 FL (9.6-12.0); Monocytes # 0.9 10*3/uL (0.11-0.8); Monocytes % 7.1 % (1.7-12.7); Neutrophils # 9.5 10*3/uL (1.4-7.4); Neutrophils % 78.3 % (38.7-73.9); Platelet Count 258 T/CUMM (130-400); Red Blood Count 2.73 MC/CUMM (3.8-5.5); White Blood Count 12.1 T/CUMM (4-12)
[2018-12-02 05:33] LABS: Calcium 8.3 MG/DL (8.5-10.1); Potassium 4.2 MMOL/L (3.5-5.1); Uric Acid 6.6 MG/DL (3.5-7.2)
[2018-12-02] MEDS: VANCOMYCIN 50 MG/ML 60 ML/BOTTLE PO SCH ×3 (06:26→21:02)
[2018-12-02] MEDS: PANTOPRAZOLE 40 MG VIAL IV SCH (08:48)
[2018-12-02] MEDS: INSULIN LISPRO PROTAMINE/LISPRO 75/25 100 UNIT/ML SUBCUT SCH ×2 (08:49→17:00)
[2018-12-02] MEDS: CHOLECALCIFEROL 1,000 UNIT TABLET PO SCH (08:49)
[2018-12-02] MEDS: ENOXAPARIN 40 MG/0.4 ML SYRINGE SUBCUT SCH (08:49)
[2018-12-02] MEDS: LOSARTAN 50 MG TABLET PO SCH (08:50)
[2018-12-02] MEDS: ALLOPURINOL 100 MG TABLET PO SCH (08:50)
[2018-12-02] MEDS: OMEGA 3 ACID ETHYL ESTERS 1 GM CAPSULE PO SCH (08:50)
[2018-12-02] MEDS: MULTIVITAMIN (INTRINSIC) CAPSULE PO SCH ×2 (08:50→21:02)
[2018-12-02] MEDS: ASPIRIN EC 81 MG TABLET PO SCH (08:50)
[2018-12-02] MEDS: LACTOBACILLUS ACIDOPHILUS/BULGARICUS CHEW TABLET PO SCH ×3 (08:50→21:02)
[2018-12-02] MEDS: CHLORTHALIDONE 25 MG TABLET PO SCH (08:50)
[2018-12-02] MEDS: ROSUVASTATIN 20 MG TABLET PO SCH (21:02)
[2018-12-02] MEDS: INSULIN GLARGINE 100 UNIT/ML SUBCUT SCH (21:03)
[2018-12-03] MEDS: VANCOMYCIN 50 MG/ML 60 ML/BOTTLE PO SCH ×3 (06:12→21:11)
[2018-12-03] MEDS: KETOROLAC 10 MG TABLET PO SCH (06:12)
[2018-12-03] MEDS: metroNIDAZOLE 250 MG TABLET PO SCH ×4 (06:12→23:26)
[2018-12-03] MEDS: INSULIN LISPRO PROTAMINE/LISPRO 75/25 100 UNIT/ML SUBCUT SCH ×2 (07:57→17:15)
[2018-12-03] MEDS: ENOXAPARIN 40 MG/0.4 ML SYRINGE SUBCUT SCH (09:00)
[2018-12-03] MEDS: CHOLECALCIFEROL 1,000 UNIT TABLET PO SCH (09:39)
[2018-12-03] MEDS: CHLORTHALIDONE 25 MG TABLET PO SCH (09:39)
[2018-12-03] MEDS: ALLOPURINOL 100 MG TABLET PO SCH (09:39)
[2018-12-03] MEDS: MULTIVITAMIN (INTRINSIC) CAPSULE PO SCH ×2 (09:39→21:11)
[2018-12-03] MEDS: PANTOPRAZOLE 40 MG VIAL IV SCH (09:39)
[2018-12-03] MEDS: ASPIRIN EC 81 MG TABLET PO SCH (09:39)
[2018-12-03] MEDS: LOSARTAN 50 MG TABLET PO SCH (09:39)
[2018-12-03] MEDS: OMEGA 3 ACID ETHYL ESTERS 1 GM CAPSULE PO SCH (09:39)
[2018-12-03] MEDS: LACTOBACILLUS ACIDOPHILUS/BULGARICUS CHEW TABLET PO SCH ×3 (09:39→21:11)
[2018-12-03] MEDS: ONDANSETRON 4 MG/2 ML VIAL IV PRN (09:40)
[2018-12-03] MEDS: ROSUVASTATIN 20 MG TABLET PO SCH (21:11)
[2018-12-03] MEDS: INSULIN GLARGINE 100 UNIT/ML SUBCUT SCH (21:11)
[2018-12-04] MEDS: metroNIDAZOLE 250 MG TABLET PO SCH ×2 (06:25→13:56)
[2018-12-04] MEDS: VANCOMYCIN 50 MG/ML 60 ML/BOTTLE PO SCH ×2 (06:25→13:57)
[2018-12-04] MEDS: INSULIN LISPRO PROTAMINE/LISPRO 75/25 100 UNIT/ML SUBCUT SCH (09:01)
[2018-12-04] MEDS: CHOLECALCIFEROL 1,000 UNIT TABLET PO SCH (09:29)
[2018-12-04] MEDS: ASPIRIN EC 81 MG TABLET PO SCH (09:29)
[2018-12-04] MEDS: CHLORTHALIDONE 25 MG TABLET PO SCH (09:32)
[2018-12-04] MEDS: MULTIVITAMIN (INTRINSIC) CAPSULE PO SCH (09:32)
[2018-12-04] MEDS: LOSARTAN 50 MG TABLET PO SCH (09:32)
[2018-12-04] MEDS: OMEGA 3 ACID ETHYL ESTERS 1 GM CAPSULE PO SCH (09:32)
[2018-12-04] MEDS: ALLOPURINOL 100 MG TABLET PO SCH (09:33)
[2018-12-04] MEDS: ENOXAPARIN 40 MG/0.4 ML SYRINGE SUBCUT SCH (09:35)
[2018-12-04] MEDS: LACTOBACILLUS ACIDOPHILUS/BULGARICUS CHEW TABLET PO SCH ×2 (09:37→13:57)
[2018-12-04] MEDS: PANTOPRAZOLE 40 MG VIAL IV SCH (09:38)
[2018-12-04 11:30] VITALS: BP 113/65
== END 2018-12-04 14:30 | DRG 271 ==
LOC: N.ED 21:45 → N.EDINP 11-24 02:34 → N.TELES 11-24 03:40 → N.3E 12-01 16:13
PROVIDERS: ADMIT Surgery; ATTEND Surgery

== ENCOUNTER 2019-05-16 12:01 | Inpatient (IN) ==
[2019-05-16 11:06] LABS: Basophils % 0.4 % (0.0-0.8); Eosinophils # 0.2 10*3/uL (0.0-0.87); Eosinophils % 2.4 % (0.00-10.9); Hematocrit 33.2 VOL% (42.0-52.0); Hemoglobin 11.1 GM/DL (14.0-18.0); Immature Granulocytes % 1.2 %; Immature Granulocytes Absolute 0.11 #; Lymphocytes # 1.4 10*3/uL (1.4-4.0); Lymphocytes % 15.4 % (21.2-54.2); Mean Corpuscular HGB Conc 33.4 GM/DL (32-36); Mean Corpuscular Volume 85.1 FL (87-102); Mean Platelet Volume 10.7 FL (9.6-12.0); Monocytes % 6.2 % (1.7-12.7); Neutrophils % 74.4 % (38.7-73.9); Platelet Count 179 T/CUMM (130-400); Red Cell Distribution Width 15.7 % (9.3-17.3); White Blood Count 9.1 T/CUMM (4-12)
[2019-05-16 11:22] LABS: Osmolality,Calculated 297.5 MOS/KG (273-304)
[2019-05-16] MEDS ORDERED: ONDANSETRON 4 MG/2 ML VIAL IV PRN (14:58)
[2019-05-16] MEDS ORDERED: ACETAMINOPHEN 325 MG TABLET PO PRN (14:58)
[2019-05-16] MEDS ORDERED: GLUCAGON 1 MG VIAL IM PRN (15:00)
[2019-05-16] MEDS ORDERED: DEXTROSE 10% 250 ML BAG IV PRN (15:00)
[2019-05-16] MEDS ORDERED: hydrALAZINE 20 MG/1 ML VIAL IV PRN (15:02)
[2019-05-16] MEDS ORDERED: DEXTROSE 50% 25 GM/50 ML VIAL IV PRN (15:26)
[2019-05-16] MEDS: INSULIN REGULAR 100 UNIT/ML SUBCUT SCH ×7 (15:49→22:06)
[2019-05-16] MEDS: CHOLECALCIFEROL 1,000 UNIT TABLET PO SCH (15:49)
[2019-05-16] MEDS: SODIUM CHLORIDE 0.9% 1,000 ML IV SCH (15:50)
[2019-05-16 16:32] LABS: Apearance,Urine CLEAR (Clear); Bilirubin,Urine Negative (Negative); Blood, Urine Negative (Negative); Glucose,Urine (UA) >=500 mg/dL (Negative); Ketones,Urine Negative (Negative); Nitrite,Urine Negative (Negative); Protein,Urine Negative; Urine Color Straw (Yellow); Urine Specific Gravity 1.022 (1.001-1.035); Urine Urobilinogen < 2.0 EU/DL (0.2-1.0)
[2019-05-16] MEDS ORDERED: INSULIN REGULAR 100 UNIT/ML SUBCUT SCH (18:00)
[2019-05-16] MEDS: ENOXAPARIN 30 MG/0.3 ML SYRINGE SUBCUT SCH (20:49)
[2019-05-16] MEDS: ROSUVASTATIN 20 MG TABLET PO SCH (20:49)
[2019-05-17] MEDS: INSULIN REGULAR 100 UNIT/ML SUBCUT SCH ×5 (00:02→20:46)
[2019-05-17] MEDS: SODIUM CHLORIDE 0.9% 1,000 ML IV SCH (05:11)
[2019-05-17 06:14] LABS: Basophils % 0.5 % (0.0-0.8); Eosinophils # 0.3 10*3/uL (0.0-0.87); Eosinophils % 2.9 % (0.00-10.9); Hematocrit 28.1 VOL% (42.0-52.0); Immature Granulocytes % 1.9 %; Immature Granulocytes Absolute 0.17 #; Lymphocytes # 1.8 10*3/uL (1.4-4.0); Lymphocytes % 20.2 % (21.2-54.2); Mean Corpuscular HGB Conc 35.6 GM/DL (32-36); Mean Corpuscular Volume 86.2 FL (87-102); Mean Platelet Volume 11.8 FL (9.6-12.0); Monocytes % 8.9 % (1.7-12.7); Neutrophils % 65.6 % (38.7-73.9); Platelet Count 175 T/CUMM (130-400); Red Blood Count 3.26 MC/CUMM (3.8-5.5); White Blood Count 8.8 T/CUMM (4-12)
[2019-05-17 06:59] LABS: Albumin 2.6 G/DL (3.4-5.0); Bilirubin,Total 0.5 MG/DL (0.2-1.0); Calcium 8.5 MG/DL (8.5-10.1); Risk Ratio 4.03; VLDL CHOLESTEROL 211.2 MG/DL
[2019-05-17] MEDS ORDERED: POTASSIUM CHLORIDE 20 MEQ TABLET PO PRN (07:07)
[2019-05-17] MEDS ORDERED: GLUCAGON 1 MG VIAL IM PRN (07:30)
[2019-05-17] MEDS ORDERED: DEXTROSE 50% 25 GM/50 ML VIAL IV PRN (07:30)
[2019-05-17 07:43] LABS: Osmolality,Calculated 290.1 MOS/KG (273-304)
[2019-05-17] MEDS: POTASSIUM CHLORIDE INJ 30 MEQ in SODIUM CHLORIDE 0.45% 1,000 ML IV SCH (07:53)
[2019-05-17] MEDS ORDERED: VANCOMYCIN INJ 500 MG in SODIUM CHLORIDE 0.9% 100 ML IV ONE (08:00)
[2019-05-17] MEDS: ASPIRIN EC 81 MG TABLET PO SCH (08:07)
[2019-05-17] MEDS: LOSARTAN 50 MG TABLET PO SCH (08:07)
[2019-05-17] MEDS: CHLORTHALIDONE 25 MG TABLET PO SCH (08:07)
[2019-05-17] MEDS: OMEGA 3 ACID ETHYL ESTERS 1 GM CAPSULE PO SCH (08:07)
[2019-05-17] MEDS: FERROUS SULFATE ER 140 MG TABLET PO SCH (08:07)
[2019-05-17] MEDS: FENOFIBRATE 160 MG TABLET PO SCH (08:08)
[2019-05-17] MEDS: CHOLECALCIFEROL 1,000 UNIT TABLET PO SCH (08:08)
[2019-05-17] MEDS: ALLOPURINOL 100 MG TABLET PO SCH (08:08)
[2019-05-17] MEDS ORDERED: LIDOCAINE 1% 20 ML VIAL ONE (08:28)
[2019-05-17] MEDS ORDERED: BUPIVACAINE 0.5% 50 ML VIAL ONE (08:28)
[2019-05-17] MEDS ORDERED: MAGNESIUM SULF RIDER 2 GM in PREMIX 1 EACH IV ONE (08:54)
[2019-05-17] MEDS ORDERED: PROPOFOL 200 MG/20 ML VIAL IV ONE (09:29)
[2019-05-17] MEDS ORDERED: fentaNYL 100 MCG/2 ML VIAL ONE (09:30)
[2019-05-17] MEDS ORDERED: SEVOFLURANE 1 UNIT/15 MINUTE INH ONE (09:30)
[2019-05-17] MEDS ORDERED: MIDAZOLAM 2 MG/2 ML VIAL ONE (09:30)
[2019-05-17] MEDS ORDERED: PHENYLEPHRINE 1 MG/10 ML SYRINGE IV ONE (09:30)
[2019-05-17] MEDS ORDERED: ONDANSETRON 4 MG/2 ML VIAL ONE (09:30)
[2019-05-17] MEDS ORDERED: HYDROmorphone 2 MG/1 ML VIAL IV PRN (09:33)
[2019-05-17] MEDS ORDERED: ONDANSETRON 4 MG/2 ML VIAL IV PRN (09:33)
[2019-05-17] MEDS: ROSUVASTATIN 20 MG TABLET PO SCH (20:47)
[2019-05-17] MEDS: ENOXAPARIN 30 MG/0.3 ML SYRINGE SUBCUT SCH (20:47)
[2019-05-17] MEDS ORDERED: INSULIN GLARGINE 100 UNIT/ML SUBCUT SCH (21:00)
[2019-05-18] MEDS: POTASSIUM CHLORIDE INJ 30 MEQ in SODIUM CHLORIDE 0.45% 1,000 ML IV SCH (00:38)
[2019-05-18 05:19] LABS: Basophils % 0.5 % (0.0-0.8); Eosinophils # 0.3 10*3/uL (0.0-0.87); Hematocrit 29.1 VOL% (42.0-52.0); Hemoglobin 9.5 GM/DL (14.0-18.0); Immature Granulocytes % 0.7 %; Immature Granulocytes Absolute 0.06 #; Lymphocytes # 1.4 10*3/uL (1.4-4.0); Mean Corpuscular HGB Conc 32.6 GM/DL (32-36); Mean Corpuscular Volume 87.9 FL (87-102); Mean Platelet Volume 11.1 FL (9.6-12.0); Monocytes % 7.5 % (1.7-12.7); Neutrophils % 70.3 % (38.7-73.9); Platelet Count 160 T/CUMM (130-400); Red Blood Count 3.31 MC/CUMM (3.8-5.5); Red Cell Distribution Width 16.1 % (9.3-17.3); White Blood Count 8.4 T/CUMM (4-12)
[2019-05-18 05:57] LABS: Calcium 8.8 MG/DL (8.5-10.1); Osmolality,Calculated 289.8 MOS/KG (273-304)
[2019-05-18] MEDS ORDERED: INSULIN LISPRO PROTAMINE/LISPRO 75/25 100 UNIT/ML SUBCUT SCH ×2 (08:00→12:00)
[2019-05-18] MEDS: ASPIRIN EC 81 MG TABLET PO SCH (08:49)
[2019-05-18] MEDS: ALLOPURINOL 100 MG TABLET PO SCH (08:49)
[2019-05-18] MEDS: CHLORTHALIDONE 25 MG TABLET PO SCH (08:49)
[2019-05-18] MEDS: CHOLECALCIFEROL 1,000 UNIT TABLET PO SCH (08:49)
[2019-05-18] MEDS: INSULIN REGULAR 100 UNIT/ML SUBCUT SCH ×2 (08:49→12:07)
[2019-05-18] MEDS: OMEGA 3 ACID ETHYL ESTERS 1 GM CAPSULE PO SCH (08:49)
[2019-05-18] MEDS: FENOFIBRATE 160 MG TABLET PO SCH (08:49)
[2019-05-18] MEDS: FERROUS SULFATE ER 140 MG TABLET PO SCH (08:50)
[2019-05-18] MEDS: LOSARTAN 50 MG TABLET PO SCH (08:50)
[2019-05-18] MEDS ORDERED: Liraglutide [Victoza 3-Pak] 1.8 MG SUBCUT SCH (09:00)
[2019-05-18] MEDS ORDERED: ceFAZolin 1,000 MG in SYRINGE 1 EACH IV SCH (10:30)
[2019-05-18 11:14] VITALS: BP 102/56
== END 2019-05-18 13:10 | disposition home health service (06) | DRG 982 ==
LOC: EDSTATUS 12:02 → N.3E 12:03
PROVIDERS: ADMIT Surgery; ATTEND Surgery

== ENCOUNTER 2019-12-23 16:03 | Inpatient (IN) ==
[2019-12-23] MEDS ORDERED: SODIUM CHLORIDE 0.9% 1,000 ML IV STA (16:51)
[2019-12-23] MEDS ORDERED: ONDANSETRON 4 MG/2 ML VIAL IV ONE (16:51)
[2019-12-23 16:57] LABS: Basophils % 0.2 % (0.0-0.8); Eosinophils % 0.5 % (0.00-10.9); Hematocrit 30.7 VOL% (42.0-52.0); Immature Granulocytes % 1.9 %; Immature Granulocytes Absolute 0.12 #; Lymphocytes # 0.6 10*3/uL (1.4-4.0); Mean Corpuscular HGB Conc 32.6 GM/DL (32-36); Mean Platelet Volume 10.8 FL (9.6-12.0); Monocytes % 6.1 % (1.7-12.7); Neutrophils % 81.3 % (38.7-73.9); Platelet Count 211 T/CUMM (130-400); Red Blood Count 3.57 MC/CUMM (3.8-5.5); White Blood Count 6.4 T/CUMM (4-12)
[2019-12-23 17:04] LABS: PT Patient Result 10.3 SECS (9.8-11.9)
[2019-12-23] MEDS ORDERED: ACETAMINOPHEN 325 MG TABLET PO ONE (17:04)
[2019-12-23 17:13] LABS: Alanine Aminotransferase 37 U/L (16-61); Albumin 2.1 G/DL (3.4-5.0); Alkaline Phosphatase 65 U/L (45-117); Aspartate Amino Transferase 53 U/L (0-37); Bilirubin,Total < 0.39 MG/DL (0.2-1.0); Blood Urea Nitrogen 44 MG/DL (7-18); Calcium 8.5 MG/DL (8.5-10.1); Glucose 228 MG/DL (74-106); Osmolality,Calculated 290.8 MOS/KG (273-304); Total Protein 6.8 G/DL (6.4-8.3); Troponin I < 0.015 NG/ML (0.00-0.045)
[2019-12-23 17:16] LABS: Estimated Glom Filtration Rate 0 ML/MIN
[2019-12-23] MEDS ORDERED: PIPERACILLIN/TAZOBACTAM 3,375 MG in SODIUM CHLORIDE 0.9% 100 ML IV STA (17:32)
[2019-12-23] MEDS ORDERED: VANCOMYCIN INJ 1,000 MG in SODIUM CHLORIDE 0.9% 250 ML IV STA (17:32)
[2019-12-23 17:34] LABS: ABG Base Excess -3.1 MMOL/L (-2.5-2.5); ABG HCO3 21.6 MMOL/L (20-26); ABG PCO2 37.6 MM HG (35-48); ABG PH 7.378 (7.35-7.45); ABG TCO2 22.8 MMOL/L (23-27)
[2019-12-23 17:36] LABS: ABG PO2 28.5 MM HG (80-95)
[2019-12-23 18:32] LABS: ABG HCO3 21.9 MMOL/L (20-26); ABG Oxygen Saturation 95.1 % (95-100); ABG PCO2 31.6 MM HG (35-48); ABG PH 7.423 (7.35-7.45); ABG PO2 76.6 MM HG (80-95); ABG TCO2 18.7 MMOL/L (23-27)
[2019-12-23] MEDS ORDERED: guaiFENesin/DM ER 600-30 MG TABLET PO PRN (20:23)
[2019-12-23] MEDS ORDERED: DEXTROSE 50% 25 GM/50 ML VIAL IV PRN ×2 (20:23→21:28)
[2019-12-23] MEDS ORDERED: GLUCAGON 1 MG VIAL IM PRN (20:23)
[2019-12-23] MEDS ORDERED: ONDANSETRON 4 MG/2 ML VIAL IV PRN (20:23)
[2019-12-23] MEDS ORDERED: SODIUM CHLORIDE 0.45% 1,000 ML IV SCH (20:30)
[2019-12-23] MEDS ORDERED: ACETAMINOPHEN 325 MG TABLET PO PRN (20:32)
[2019-12-23] MEDS ORDERED: ENOXAPARIN 30 MG/0.3 ML SYRINGE SUBCUT SCH (21:00)
[2019-12-24] MEDS ORDERED: ALBUTEROL/IPRATROPIUM 3 ML NEB RESP TX SCH (01:00)
[2019-12-24] MEDS ORDERED: ALBUTEROL INHALER 8 GM INH SCH (01:00)
[2019-12-24] MEDS: PIPERACILLIN/TAZOBACTAM 3,375 MG in SODIUM CHLORIDE 0.9% 100 ML IV SCH ×2 (05:03→11:30)
[2019-12-24 06:49] LABS: Basophils % 0.3 % (0.0-0.8); Eosinophils # 0.1 10*3/uL (0.0-0.87); Eosinophils % 1.1 % (0.00-10.9); Hemoglobin 10.2 GM/DL (14.0-18.0); Immature Granulocytes % 1.5 %; Immature Granulocytes Absolute 0.11 #; Lymphocytes # 0.6 10*3/uL (1.4-4.0); Lymphocytes % 8.8 % (21.2-54.2); Mean Corpuscular HGB Conc 31.9 GM/DL (32-36); Mean Corpuscular Volume 87.4 FL (87-102); Mean Platelet Volume 11.4 FL (9.6-12.0); Monocytes % 4.7 % (1.7-12.7); Neutrophils % 83.6 % (38.7-73.9); Platelet Count 244 T/CUMM (130-400); Red Blood Count 3.66 MC/CUMM (3.8-5.5); White Blood Count 7.2 T/CUMM (4-12)
[2019-12-24 07:05] LABS: Calcium 8.7 MG/DL (8.5-10.1); Osmolality,Calculated 291.5 MOS/KG (273-304)
[2019-12-24 07:13] LABS: Band Neutrophils 2 % (0-10); Lymphocytes 13 % (20-55); Platelet Estimate Adequate; Segmented Neutrophils 79 % (50-85); Total Cells Counted 100
[2019-12-24] MEDS: INSULIN REGULAR 100 UNIT/ML SUBCUT SCH ×3 (08:05→12:20)
[2019-12-24] MEDS ORDERED: PANTOPRAZOLE 40 MG TABLET PO SCH (09:00)
[2019-12-24 11:36] VITALS: BP 124/53
== END 2019-12-24 14:40 | disposition home or self-care (01) | DRG 177 ==
LOC: EDUNIT# → EDBD → N.ED 16:03 → N.EDINP 20:23 → N.2E 21:00
PROVIDERS: ADMIT Family Medicine; ATTEND Family Medicine